=== PATIENT | female | born 1950 | race Caucasian/White ===

== ENCOUNTER → 2016-09-14 | Day surgery (SDC) | payer BC, OTHER ==
[~2016-09-14] VITALS: Ht 177.8 cm; Wt 77.6 kg
[~2016-09-14] MED LIST: LEVOTHYROXIN0.125 M1 PO; VALIUM5 MG PO
--- NOTE | ~2016-09-14 | S ---
[facility] [place] [address] SURGICAL PATH RPT PROCEDURE Name: [place] Room #: REG [facility] [place] M.R.#: [id number] Admission: 09/14/16 Date of : 52 Discharge: Report #: [id number] Path Case #: [id number] PATHOLOGY REPORT COLLECTION DATE: 09/14/2016 RECEIVED DATE: 09/14/2016 SUBMITTING PHYS: Dr. Jairo Jensen OTHER PHYS: Dr. Jenna Haney SPECIMEN(S) RECEIVED: A.Right lower lid tumor * * * * * * * * * * * * FINAL DIAGNOSIS: Skin, right lower lid tumor, excision: - BASAL CELL CARCINOMA. - Margins of resection free. (IUV:csd; d/t: 09/15/2016) PATHOLOGIST: Marie Charles M.D. REPORT ELECTRONICALLY SIGNED BY: Marie Charles M.D. DATE/TIME: 09/18/2016 15:01 * * * * * * * * * * * * GROSS PATHOLOGY: The specimen is received fresh from the OR labeled, "[place], right lower lid tumor." It consists of an oriented rectangular portion of eyelid skin/mucosa and subcutaneous/submucosal tissue measuring 1.1 x 0.6 x 0.4 cm. The medial margin is inked blue, the lateral margin is inked black, and the inferior/deep margin is inked green. The specimen is bisected and entirely submitted for one frozen section. The frozen section is then submitted as A1. (CLW:r; d/t: 09/14/16) FROZEN SECTION DIAGNOSIS: (Mary Valverde M.D.) "Right lower lid tumor": - Squamoproliferative lesion; margins free of invasive tumor. The case is discussed with Dr. Jairo Jensen in the operating room, and a written report is placed in the patient's chart. (CLW:mgr; d/t: 09/14/16) Testing performed by [facility] at [facility] [address] [place] [id number] [place] [address] [place] [address] SURGICAL PATH RPT PROCEDURE Name: [place] Room #: REG [facility].#: [id number] Admission: 09/14/16 Date of : 52 Discharge: Report #: [id number] Path Case #: [id number] CLINICAL HISTORY: Possible BCCA right lower lid. INITIAL CPT CODE(S): A; 24256, 33166 Professional services performed by [facility] at [facility] [address] [place] [address] Technical services performed by [facility] at [address] [place] [address], [place] [address]. [facility] [address] [place] [address] PHONE: [phone] DIRECTOR: Sawyer Markham M.D. * * * END OF REPORT * * *
--- NOTE | ~2016-09-14 | O ---
[facility] [place] [address] OPERATIVE REPORT Name: PARVIN MOYA Room #: REG [facility]..#: [id number] Admission: 09/14/16 Attend Phys: Jairo Jensen MD Discharge: Date of : 52 Report #: [id number] THIS REPORT FOR: //name// CC: Jenna Jensen DATE OF SERVICE: 09/14/2016 PREOPERATIVE DIAGNOSIS: Basal cell carcinoma of right lower lid and cheek. POSTOPERATIVE DIAGNOSIS: Basal cell carcinoma of right lower lid and cheek. PROCEDURE: Excision of basal cell carcinoma of right lower lid and cheek with frozen section, control of margins and myocutaneous flap repair of defect. SURGEON: Jairo Jensen MD SHIPPING CLERK/ADMIN: None. ANESTHESIA: General. COMPLICATIONS: None. INDICATIONS FOR SURGERY: This pleasant 65-year-old woman has a nodular ulcerative lesion in her central right lower lid that encompasses over 50% of her lid. She presents today for excision of this tumor, which is thought to most likely be a basal cell carcinoma, utilizing frozen section of the tumor extirpation subsequent reconstruction. Informed consent was obtained to include, but not limit to the potential risk for loss of vision, bleeding, infection, failure to improve the problem, the potential need for further surgery or treatment. DESCRIPTION OF PROCEDURE: The patient was taken to the operating room where general anesthesia was undertaken. The right lower lid, the right lateral canthus, the right cheek, the right infratemporal fossa and the right supraclavicular area were all anesthetized with Xylocaine with epinephrine mixed with Marcaine and Wydase. The patient was subsequently prepped and draped in the usual sterile fashion for this type of procedure. The tumor was then outlined including 1-2 mm of normal appearing tissue around its margins across the right lower lid. The incisions were then made perpendicularly across the right lower lid margin and then connected in the cheek. The specimen was oriented on a drawing for the waiting pathologist. Hemostasis was achieved in the field with diligent pinpoint monopolar cautery. The pathologist snap froze that tumor and analyzed the margins finding that it was indeed clear and that it did appear to be a basal cell carcinoma. [address] [address] OPERATIVE REPORT Name: PARVIN MOYA Room #: REG [facility]..#: [id number] Admission: 09/14/16 Attend Phys: Jairo Jensen MD Discharge: Date of : 52 Report #: [id number] Attention was then turned to repair the ensuing defect. It was initially thought that a vascularized tarsoconjunctival flap combined with a full thickness skin graft was going to be necessary. However, a semicircular flap from the right lower lid and cheek was able to be outlined to correct the defect. The relaxing incisions were made for the flap and then it was rotated into position. Hemostasis was then re-achieved. The deep structures were reapproximated with interrupted 6-0 Vicryl sutures deep and then 7-0 Vicryl sutures more superficially. The subcutaneous structures and the skin were then closed with interrupted 6-0 plain gut sutures. The wounds were then cleaned and dressed with erythromycin ophthalmic ointment. The patient subsequently transported to the recovery area having tolerated the procedure well with no anesthetic or operative complications being noted. <ELECTRONICALLY SIGNED> By: Jairo Jensen MD 09/18/16 0611 [id number] Jairo Jensen MD /nt
[2016-09-14 13:30] VITALS: BP 147/76
== END | disposition home or self-care (01) ==
LOC: OR 05:05
DX: C44.112 Basal cell carcinoma of skin of right eyelid, including canthus (principal); C44.319 Basal cell carcinoma of skin of other parts of face; Z90.710 Acquired absence of both cervix and uterus
CPT/HCPCS: 50010; 50101; 50398; 51636; 56528; 56531; 62110; 62900; 70005